=== PATIENT | male | born 1965 | race Two or more races ===

== ENCOUNTER 2024-08-27 06:08 | Day surgery (SDC) | payer MEDICAID ==
[2024-08-26 12:01] LABS: Urine Bacteria None Seen /hpf (None Seen)
[2024-08-26 12:14] LABS: Basophils # (auto) 0.1 10 ^3/uL (0-0.2); Basophils % (auto) 1.1 % (0.0-2.0); Eosinophils # (auto) 0.1 10 ^3/uL (0-0.8); Eosinophils % (auto) 1.6 % (0.0-7.0); Hematocrit 49.9 % (41.0-53.0); Hemoglobin 17.4 g/dL (13.5-17.5); Lymphocytes % (auto) 25.3 % (10.0-50.0); Mean Corpuscular Hemoglobin 30.8 pg (28.0-32.0); Mean Corpuscular Hgb Conc. 34.9 g/dL (32.0-36.0); Mean Corpuscular Volume 88.3 fL (80.0-100.0); Monocytes # (auto) 0.8 10 ^3/uL (0-1.3); Monocytes % (auto) 10.4 % (0.0-12.0); Neutrophils # (auto) 4.8 10 ^3/uL (1.6-8.6); Neutrophils % (auto) 61.6 % (37.0-80.0); Platelet Count (auto) 243 10^3/uL (140-450); Red Blood Cells 5.65 10^6/uL (4.5-5.90); Red Cell Distribution Width 13.6 % (11.8-14.3); White Blood Cell 7.8 10^3/uL (4.4-10.8)
[2024-08-26 12:22] LABS: Urine Blood Negative /uL (Negative); Urine Clarity Clear (Clear); Urine Color Light-Yellow (Yellow); Urine Mucus FEW (None Seen); Urine Protein, UAD Negative (Negative); Urine Squamous Epithelial Cell FEW /hpf (<5); Urine Urobilinogen Normal (Negative); Urine WBC < 1 /HPF (0-3); Urine pH 5.5 (5.0-9.0)
[2024-08-26 12:26] LABS: INR 0.97 (0.9-1.15); Prothrombin Time 10.3 sec (9.3-11.8)
[2024-08-26 12:38] LABS: Alanine Aminotransferase 21 U/L (7-40); Albumin 4.4 g/dL (3.2-4.8); Alkaline Phosphatase 74 U/L (46-116); Anion Gap 9 (5-15); Aspartate Aminotransferase 23 U/L (<34); BUN/Creatinine Ratio 14.4 (10.0-20.0); Bilirubin, Total 0.6 mg/dL (0.2-1.0); Blood Urea Nitrogen 14 mg/dL (9-23); Calcium 9.9 mg/dL (8.7-10.4); Carbon Dioxide 26 mmol/L (20-31); Glucose 95 mg/dL (74-106); Sodium 143 mmol/L (136-145); Total Protein 7.4 g/dL (5.7-8.2)
[2024-08-26 12:40] LABS: Chloride 108 mmol/L (98-107)
[~2024-08-27] VITALS: Ht 165.1 cm; Wt 95.3 kg
[2024-08-27] MEDS: CIPROFLOXACIN 400MG/200ML 200 ML IV ONE (06:28)
[2024-08-27] MEDS ORDERED: MIDAZOLAM HCL 2MG/2ML 2ml VIAL (1mg/ml) ONE (07:19)
[2024-08-27] MEDS ORDERED: fentaNYL CITRATE 100 MCG/2 ML VL ONE (07:19)
[2024-08-27] MEDS ORDERED: DexAMETHasone SOD PHOS 10MG/1ML VIAL INJ ONE (07:36)
[2024-08-27] MEDS ORDERED: PROPOFOL 10 MG/ML 20 ML IV ONE (07:37)
[2024-08-27] MEDS ORDERED: KETOROLAC TROMETH 30 MG/ML 1ML VIAL ONE (08:00)
--- NOTE | 2024-08-27 08:06 | DVHNC2 ---
Procedure - OPERATIVE REPORT Pre-op. Diagnosis: LUTS ELEVATED PSA 27.9 Post-op. Diagnosis: LUTS ELEVATED PSA BPH 82 grams meatal stenosis Operation: Cystoscopy with urethral dilation TRUS prostate biopsy Anesthesia: General Dr. Flood Indications: Patient with history of elevated PSA, 27.9. Patient also has history of lower urinary tract symptoms with hesitancy, occasional straining, incomplete bladder emptying, nocturia. Benefits and risks of procedures were discussed with the patient who understood and agreed with surgery. Details of Procedure: Patient was brought to the OR and placed in supine position in the OR table. Anesthesia was induced and patient was placed in lithotomy position. He was prepped and draped in sterile fashion. Using a 17 Fr. rigid cystoscope with a 30 degree lens we entered the urethra and in to the bladder. There was a meatal stenosis requiring dilation with VBS to 26F. The prostate was found to be enlarged, but with kissing lateral lobes and no median lobe, no intrusion of the prostate into the bladder. the bladder was found to have mild trabeculations, no foreign bodies, no lesions, bilateral ureteral orifices in orthotopic position. The bladder was emptied through the cystoscope sheath. At this point using an ultrasound probe with a biopsy guide we proceeded to enter the rectum. The prostate was measured as 82 cc. There were nonspecific calcifications and few hypoechoic areas. At this point we proceeded to take 12 cores samples from the prostate from the right base lateral, right base medial, right mid lateral, right mid medial, right apex lateral, right apex medial and subsequently the same areas on the left. Patient tolerated the procedure well and was transferred to recovery awake and in stable conditions. Specimens: Prostate tissue from the above areas total of 12 cores Complications: None MADYSON JEAN MD Aug 27, 2024 08:06
[2024-08-27 08:10] VITALS: PULSE 70; RESP 19; TEMP 98; O2SAT 98
--- NOTE | 2024-08-27 08:31 | DVHDS2 ---
New Physician D'charge PN Admitting Diagnosis Admitting Diagnosis Elevated PSA and BPH Discharge Diagnosis Same Urethral stenosis Operations or Procedures Cystoscopy with urethral dilation Transrectal ultrasound prostate biopsy Reason(s) For Hospitalization Surgery Treatment Plan Discharge Condition of Discharge Good Disposition Home Discharge Instructions Diet: Regular Activity: Light activity Activity comment: As tolerated Medications: Given Follow Up Care Follow Up/Referral: Two weeks Discharge Statement: "Patient was advised to return to the ER or call 911 if any headaches, dizziness, shortness of breath, chest pain, abdominal pain, bleeding, fevers, or worsening of medical condition. Patient was counseled about treatment plan, medications, possible side effects, patientverbalized understanding. All questions were answered to the best of my ability. This discharge took greater then 30 minutes in planning, reviewing documentation, counseling the patient, and discussing with other team members." MADYSON JEAN MD Aug 27, 2024 08:31
[2024-08-27] MEDS: ONDANSETRON HCL 4 MG/2 ML VIAL ONE (08:38)
[2024-08-27] MEDS: HYDROmorphone HCL 2 MG/ML VL/or syr IV PRN (08:38)
[2024-08-27] MEDS: HYDROmorphone HCL 2 MG/ML VL/or syr ONE (08:58)
[2024-08-27] MEDS: ONDANSETRON HCL 4 MG/2 ML VIAL IV ONE (09:00)
[2024-08-27 09:35] VITALS: BP 137/89; PULSE 71; RESP 20; O2SAT 96
== END 2024-08-27 09:35 | disposition home or self-care (01) ==
LOC: SUR 06:08
PROVIDERS: ATTEND Urology
DX: N40.1 Benign prostatic hyperplasia with lower urinary tract symptoms (principal); C61 Malignant neoplasm of prostate; R39.11 Hesitancy of micturition; R39.14 Feeling of incomplete bladder emptying; R39.16 Straining to void; R35.1 Nocturia; R97.20 Elevated prostate specific antigen [PSA]; N32.89 Other specified disorders of bladder; N35.911 Unspecified urethral stricture, male, meatal
CPT/HCPCS: 36415; 52000; 55700; 76872; 80053; 81001; 85025; 85610; 85730; 87086; 88305; 88342; A4315; C1769; J0744; J1100; J1171; J1885; J2250; J2405; J2704; J3010; J7030